=== PATIENT | female | born 1945 | race Caucasian/White ===

== ENCOUNTER 2023-01-10 15:13 | Emergency (ER) | payer MEDICARE, SELFPAY ==
[2023-01-10 15:14] VITALS: BP 139/87; PULSE 89; RESP 16; TEMP 36.3; O2SAT 100
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
[2023-01-10 16:18] VITALS: BMI 26.0
[2023-01-10 17:04] VITALS: BP 155/89; PULSE 72; RESP 16; O2SAT 97
== END 2023-01-10 18:08 | disposition home or self-care (01) ==
PROVIDERS: Emergency Provider Emergency Medicine; PCP Family Medicine; Visit Provider Emergency Medicine
DX: S16.1XXA Strain of muscle, fascia and tendon at neck level, initial encounter (principal); S80.01XA Contusion of right knee, initial encounter; S50.311A Abrasion of right elbow, initial encounter; M47.812 Spondylosis without myelopathy or radiculopathy, cervical region; V43.62XA Car passenger injured in collision with other type car in traffic accident, initial encounter
CPT/HCPCS: 70450; 71045; 72125; 99284